=== PATIENT | female | born 1955 | race Caucasian/White ===

== ENCOUNTER 2017-02-20 09:01 | Emergency (ER) | payer BC ==
[2017-02-20 09:12] VITALS: TEMP 98.7
--- NOTE | 2017-02-20 09:23 | ED.PDOC ---
History of Present Illness - General Chief Complaint: Chest Pain/[place] Stated Complaint: chest discomfort Time Seen by Provider: 02/20/17 09:09 Source: patient, RN notes reviewed, Vital Signs reviewed Exam Limitations: no limitations - History of Present Illness Initial Comments: Patient reports sudden onset of L sided chest pain ~1 hour prior to arrival. Pain went down L arm. +SOB & diaphoresis. No similar episodes in the past. Pain is centered around her pacemaker in her L upper chest, tender to the touch. Timing/Duration: 1 hour Severity/Quality: moderate, pressure Location: other - L chest Chest Pain Radiation: arms - L arm Activities at Onset: activity - was taking a shower Prior Chest Pain/Cardiac Workup: no prior chest pain, other - Has pacemaker due to a. fib Improving Factors: nothing Worsening Factors: nothing Nitro Today/Relief: no nitro taken today Aspirin Treatment Today: no aspirin today Associated Symptoms: diaphoresis, shortness of breath Allergies/Adverse Reactions: Allergies NO KNOWN ALLERGY Allergy (Verified 06/26/16 14:29) Home Medications: Ambulatory Orders Atorvastatin Calcium [Lipitor] 20 mg PO DAILY 06/26/16 Levothyroxine Sodium [Synthroid] 100 mcg PO DAILY 06/26/16 Lisinopril & Hydrochlorothiazi [Lisinopril/Hctz 20-25 mg] 1 tab PO DAILY Venlafaxine HCl 75 mg PO BID 06/26/16 Review of Systems - Review of Systems Constitutional: States: no symptoms reported EENTM: States: no symptoms reported Respiratory: States: short of breath. Denies: cough, stridor, wheezing Cardiology: States: see HPI, chest pain. Denies: edema, palpitations, syncope Gastrointestinal/Abdominal: States: no symptoms reported Genitourinary: States: no symptoms reported Musculoskeletal: States: see HPI Skin: States: no symptoms reported Neurological: States: no symptoms reported Endocrine: States: no symptoms reported Hematologic/Lymphatic: States: no symptoms reported Past Medical History (General) - Patient Medical History Hx Stroke: No Hx Cardiac Disorders: Yes - Hx bradycardia / s/p pacemaker placement; hypercholesterolemia Hx Congestive Heart Failure: Yes Hx Hypertension: Yes Hx Thyroid Disease: Yes - thyroidectomy Hx Diabetes: No - diet controlled, per patient Hx MRSA: No Surgical History: pacemaker, Hysterectomy - Vaccination History Hx Influenza Vaccination: Yes - 2015 Hx Pneumococcal Vaccination: Yes - 05/2016 - Social History Hx Tobacco Use: Yes - social smoker - Female History Patient is a Female of Child Bearing Age (10 -59 yrs old): No Family Medical History - Family History Mother Living Status: Still Living Hx Family Hypertension: Yes Hx Cardiac Disease: Yes - [place] Hx Family Diabetes: Yes - IDDM Physical Exam - Physical Exam General Appearance: Alert, Comfortable, No apparent distress, Well Developed, Well Groomed, Well Hydrated, Well Nourished Neck: non-tender, full range of motion, supple, normal inspection Respiratory: lungs clear, normal breath sounds, no respiratory distress, no accessory muscle use, other - L upper chest is tender to palpation over and around pacemaker Cardiovascular/Chest: normal peripheral pulses, regular rate, rhythm, no edema, no gallop, no JVD, no murmur Peripheral Pulses: dorsalis pedis,right: 2+, dorsalis pedis,left: 2+ Gastrointestinal/Abdominal: normal bowel sounds, non tender, soft, no organomegaly, no pulsatile mass Extremity: normal range of motion, non-tender, normal inspection Neurologic: no motor/sensory deficits, alert, normal mood/affect, oriented x 3 Skin Exam: normal color, warm/dry Lymphatic: no adenopathy Progress - Progress Progress: 02/20/17 09:59 Except for elevated CPK initial workup is normal. Will plan to repeat cardiac enzymes and EKG in 3 hours. 02/20/17 13:36 Second set of cardiac enzymes are normal. Will d/c home and have her follow up with her application administrator. - Results/Orders Results/Orders: Laboratory Tests 02/20/17 02/20/17 09:25 12:50 WBC 5.8 RBC 4.54 Hgb 14.0 Hct 40.6 MCV 89.3 MCH 30.8 MCHC 34.5 RDW 13.4 Plt Count 273 MPV 8.3 Absolute Neuts (auto) 3.00 Absolute Lymphs (auto) 1.90 Absolute Monos (auto) 0.50 Absolute Eos (auto) 0.30 Absolute Basos (auto) 0.10 Neutrophils % 52.1 Lymphocytes % 33.3 Monocytes % 8.7 Eosinophils % 4.7 Basophils % 1.2 PT 10.8 INR 0.960 PTT (SP) 30.8 D-Dimer, Quantitative < 200 Sodium 136 Potassium 3.5 L Chloride 99 L Carbon Dioxide 28 Anion Gap 12.5 BUN 10 Creatinine 0.82 BUN/Creatinine Ratio 12.2 Random Glucose 127 H Serum Osmolality 272.6 L Calcium 9.3 Magnesium 1.8 Total Bilirubin 0.5 Direct Bilirubin 0.1 Indirect Bilirubin 0.4 AST 29 ALT 34 Alkaline Phosphatase 53 Creatine Kinase 192 H 198 H CK-MB (CK-2) 2.2 2.1 CK-MB (CK-2) % Not Reportable Not Reportable Troponin I < 0.02 < 0.02 B-Natriuretic Peptide 6.2 Serum Total Protein 7.4 Albumin 4.7 Vital Signs - 24 hr 02/20/17 02/20/17 02/20/17 09:06 10:01 11:01 Temperature 98.7 F Pulse Rate [ 80 72 62 Apical] Respiratory 20 18 20 Rate Blood Pressure 137/97 138/92 139/96 [Right Arm] O2 Sat by Pulse 97 97 96 Oximetry - EKG/XRAY/CT EKG: no ST T wave changes Comments: Atrial paced rhythm, rate 79bpm Departure - Departure Clinical Impression: Chest pain Time of Disposition: 13:37 Disposition: Discharge to Home or Self Care Condition: Good Departure Forms: ED Discharge - Pt. Copy, Patient Portal Self Enrollment Instructions: DI for Atypical Chest Pain Diet: resume usual diet Activity: increase activity as tolerated Referrals: Alex England MD [Primary Care Provider] - 1-2 Weeks ARTIE PERAZA [Referring] - 1-2 Days Home Medications: Ambulatory Orders Atorvastatin Calcium [Lipitor] 20 mg PO DAILY 06/26/16 Levothyroxine Sodium [Synthroid] 100 mcg PO DAILY 06/26/16 Lisinopril & Hydrochlorothiazi [Lisinopril/Hctz 20-25 mg] 1 tab PO DAILY Venlafaxine HCl 75 mg PO BID 06/26/16
[2017-02-20] MEDS ORDERED: NITROGLYCERIN 0.4 MG 25 EA TAB SL ONE (09:25)
[2017-02-20] MEDS ORDERED: ASPIRIN (CHEWABLE) 81 MG TAB PO ONE (09:25)
--- NOTE | 2017-02-20 09:45 | RAD ---
EXAM DESCRIPTION: Chest,1 View CLINICAL HISTORY: Chest wall pain COMPARISON: 06/26/2016 TECHNIQUE: Single view FINDINGS: Cardiac pacemaker. Normal heart size. Tortuous aorta. The lungs are clear No acute bony abnormality IMPRESSION: No acute chest process. Electronically signed by: Nick Pinto MD 02/20/2017 9:44 AM CDT
[2017-02-20 13:55] VITALS: BP 136/84; O2SAT 96
== END 2017-02-20 13:50 | disposition home or self-care (01) ==
LOC: ER 09:01
DX: R07.9 Chest pain, unspecified (principal); Z95.0 Presence of cardiac pacemaker; I11.0 Hypertensive heart disease with heart failure; I50.9 Heart failure, unspecified; E11.9 Type 2 diabetes mellitus without complications; E78.00 Pure hypercholesterolemia, unspecified; Z87.891 Personal history of nicotine dependence; Z82.49 Family history of ischemic heart disease and other diseases of the circulatory system

== ENCOUNTER → 2017-03-18 | Outpatient (CLI) | payer BC ==
--- NOTE | 2017-03-19 11:30 | US ---
EXAM DESCRIPTION: Limited ultrasound of the left upper chest CLINICAL HISTORY: 61 years Female, CELLULITIS COMPARISON: None. TECHNIQUE: Real-time ultrasound of the left upper chest around the pacemaker site FINDINGS: There is subcutaneous edema and a small amount of fluid superior to the pacemaker and partially surrounding it. Physical exam shows induration/cellulitis in the region of interest. IMPRESSION: Infected pacemaker site. Findings discussed yesterday with Dr. England and with the patient. Electronically signed by: Damien Kemp MD 03/19/2017 11:29 AM CDT
== END | disposition home or self-care (01) ==
LOC: US 13:15
PROVIDERS: ATTEND Family Medicine
DX: L03.313 Cellulitis of chest wall (principal)

== ENCOUNTER → 2017-03-18 | Outpatient (CLI) | payer BC | END | disposition home or self-care (01) | LOC: GMAB 14:09 | PROVIDERS: ATTEND Family Medicine | DX: L03.313 Cellulitis of chest wall (principal) ==

== ENCOUNTER → 2017-03-27 | Outpatient (CLI) | payer BC ==
--- NOTE | 2017-03-28 09:07 | US ---
EXAM DESCRIPTION: Chest CLINICAL HISTORY: 61 years Female, CELLULITIS OF CHEST WALL COMPARISON: None. FINDINGS: Sonographic evaluation of the left upper anterior chest wall in the area of the recent pacer placement demonstrates a pacer in place with a tiny layer of fluid between one and 2 mm in thickness surrounding the pacer but no drainable abscess or large hematoma or fluid collection. By history the patient has undergone antibiotic treatment and a drainable area of infection is not identified. IMPRESSION: Very tiny thin 1 to 2 mm layer of fluid surrounding the indwelling pacer in the left anterior upper chest wall without evidence of abscess or hematoma. Electronically signed by: Nick Turner MD 03/28/2017 9:06 AM CDT
== END | disposition home or self-care (01) ==
LOC: US 10:35
PROVIDERS: ATTEND Family Medicine
DX: L03.313 Cellulitis of chest wall (principal); Z95.0 Presence of cardiac pacemaker

== ENCOUNTER → 2017-03-28 | Outpatient (CLI) | payer BC | END | disposition home or self-care (01) | LOC: GMAB 11:17 | PROVIDERS: ATTEND Family Medicine | DX: L03.313 Cellulitis of chest wall (principal); Z95.0 Presence of cardiac pacemaker ==

== ENCOUNTER → 2017-07-08 | Outpatient (CLI) | payer BC | END | disposition home or self-care (01) | LOC: GMAB 14:13 | PROVIDERS: ATTEND Family Medicine | DX: E03.9 Hypothyroidism, unspecified (principal) ==

== ENCOUNTER 2017-11-16 11:39 | Emergency (ER) | payer SELFPAY ==
--- NOTE | 2017-11-16 11:47 | ED.PDOC ---
History of Present Illness - General Chief Complaint: Chest Pain/[place] Stated Complaint: chest pain Time Seen by Provider: 11/16/17 11:44 Source: patient, RN notes reviewed, family Exam Limitations: no limitations Additional Information: Pt states this am she was about to brush her teeth when she had sudden right upper back pain (inferior to scapula). Pain is tender to palpation and worse with movements and deep breaths. 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 Mostly c/o right upper back pain which is tender to palpation Allergies/Adverse Reactions: Allergies Levothyroxine Allergy (Verified 11/16/17 11:54) Home Medications: Ambulatory Orders Lisinopril & Hydrochlorothiazi [Lisinopril/Hctz 20-25 mg] 1 tab PO DAILY Venlafaxine HCl 75 mg PO DAILY 06/26/16 Esomeprazole Magnesium [Nexium] 40 mg PO DAILY 11/16/17 Levothyroxine Sodium [Synthroid] 100 mcg PO DAILY 11/16/17 Review of Systems - Review of Systems Constitutional: States: no symptoms reported EENTM: States: no symptoms reported Respiratory: States: other - Back pain worsens with deep breath Cardiology: States: see HPI Gastrointestinal/Abdominal: States: no symptoms reported Genitourinary: States: no symptoms reported Musculoskeletal: States: see HPI, back pain Skin: States: no symptoms reported Neurological: States: no symptoms reported Endocrine: States: no symptoms reported Hematologic/Lymphatic: States: no symptoms reported Past Medical History (General) - Patient Medical History Hx Stroke: No Hx Cardiac Disorders: Yes - Hx bradycardia / s/p pacemaker placement; hypercholesterolemia Hx Congestive Heart Failure: Yes Hx Hypertension: Yes Hx Thyroid Disease: Yes - thyroidectomy Hx Diabetes: No - diet controlled, per patient Hx MRSA: No - Vaccination History Hx Influenza Vaccination: Yes - 2015 Hx Pneumococcal Vaccination: Yes - 05/2016 - Social History Hx Tobacco Use: Yes - social smoker Family Medical History - Family History Mother Living Status: Still Living Hx Family Hypertension: Yes Hx Cardiac Disease: Yes - [place] Hx Family Diabetes: Yes - IDDM Physical Exam - Physical Exam General Appearance: Anxious, Well Developed, Well Groomed, Well Hydrated, Well Nourished Eyes, Ears, Nose, Throat Exam: PERRL/EOMI, normal ENT inspection, pharynx normal Neck: non-tender, full range of motion, supple, normal inspection Respiratory: no respiratory distress, no accessory muscle use Cardiovascular/Chest: normal peripheral pulses, regular rate, rhythm Gastrointestinal/Abdominal: non tender, soft Extremity: normal range of motion 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 Progress - Progress Progress: 11/16/17 13:25 Doubt PE. Not hypoxic. No tachycardia. Negative d-dimer. Work-up for ACS negative. Exam consistent with muscle spasm/myofascial pain. Serial EKG with NSR. Telemetry shows sinus rhythm with variable HR 50s to 80s. Plan is for Holter Monitor for 48 hours and strict return precautions. - Results/Orders Results/Orders: Laboratory Results - last 24 hr 11/16/17 11/16/17 11/16/17 11:58 11:58 11:58 WBC 7.0 RBC 4.70 Hgb 14.2 Hct 41.1 MCV 87.4 MCH 30.2 MCHC 34.6 RDW 13.6 Plt Count 259 MPV 8.3 Absolute Neuts (auto) 3.50 Absolute Lymphs (auto) 2.40 Absolute Monos (auto) 0.70 Absolute Eos (auto) 0.30 Absolute Basos (auto) 0.10 Neutrophils % 50.2 Lymphocytes % 34.6 Monocytes % 9.8 H Eosinophils % 3.9 Basophils % 1.5 D-Dimer, Quantitative < 230 Sodium 139 Potassium 3.9 Chloride 103 Carbon Dioxide 27 Anion Gap 12.9 BUN 18 Creatinine 0.79 BUN/Creatinine Ratio 22.8 H Random Glucose 80 Serum Osmolality 278.4 Calcium 9.9 Total Bilirubin 0.4 AST 27 ALT 32 Alkaline Phosphatase 57 Creatine Kinase 244 H* CK-MB (CK-2) 3.3 CK-MB (CK-2) % Not Reportable Troponin I < 0.02 B-Natriuretic Peptide 27.7 Serum Total Protein 7.9 Albumin 4.9 Globulin 3.0 Albumin/Globulin Ratio 1.6 11/16/17 11/16/17 11:48 12:03 Temperature 97.7 F Pulse Rate [ 51 L 82 Right Brachial] Respiratory 16 Rate Blood Pressure 158/112 [Right Arm] O2 Sat by Pulse 98 Oximetry - EKG/XRAY/CT EKG: Sinus - NSR 78 bpm no S-T elevation at 1137 XRAY: chest - No acute abnormalities - Additional EKG/XRAY/Consults EKG #2: Sinus - 66 bpm, NSR, no S-T elevation Departure - Departure Clinical Impression: History of cardiac arrhythmia Upper back strain Qualifiers: Encounter type: initial encounter Qualified Code(s): S29.012A - Strain of muscle and tendon of back wall of thorax, initial encounter Time of Disposition: 13:25 Disposition: Discharge to Home or Self Care Condition: Good Departure Forms: ED Discharge - Pt. Copy, Patient Portal Self Enrollment Referrals: Alex England MD [Primary Care Provider] - 1-5 Days Home Medications: Ambulatory Orders Lisinopril & Hydrochlorothiazi [Lisinopril/Hctz 20-25 mg] 1 tab PO DAILY Venlafaxine HCl 75 mg PO DAILY 06/26/16 Esomeprazole Magnesium [Nexium] 40 mg PO DAILY 11/16/17 Levothyroxine Sodium [Synthroid] 100 mcg PO DAILY 11/16/17 Additional Instructions: Return to ER if condition worsens. Follow-up with Dr. England for Holter Monitor results and make sure Dr. Roberto in [facility] gets the report as well. Stay well hydrated. Heat and massage for upper back symptoms. Ok to take ibuprofen/advil 400 mg three times a day as well as needed for pain.
[2017-11-16 11:54] VITALS: O2SAT 98
--- NOTE | 2017-11-16 12:24 | RAD ---
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 No pleural effusion or pneumothorax. Cardiac silhouette is normal in size. Impression: No acute pulmonary process. Electronically signed by: Emelyn Pozo MD 11/16/2017 12:22 PM INFORMATION SERVICES VICE PRESIDENT
[2017-11-16 13:30] VITALS: BP 133/91; TEMP 97
== END 2017-11-16 13:25 | disposition home or self-care (01) ==
LOC: ER 11:39
DX: S29.012A Strain of muscle and tendon of back wall of thorax, initial encounter (principal); F17.200 Nicotine dependence, unspecified, uncomplicated; I11.0 Hypertensive heart disease with heart failure; I50.9 Heart failure, unspecified; Z86.79 Personal history of other diseases of the circulatory system; Z95.0 Presence of cardiac pacemaker; Z86.711 Personal history of pulmonary embolism

== ENCOUNTER 2019-01-03 13:44 | Emergency (ER) | payer SELFPAY ==
[2019-01-03] MEDS ORDERED: ENALAPRILAT INJ 1.25 MG/ML VIAL IV ONE (14:15)
--- NOTE | 2019-01-03 14:20 | ED.PDOC ---
History of Present Illness - General Chief Complaint: Cardiovascular Problem Stated Complaint: Uncontrolled HTN, cough Time Seen by Provider: 01/03/19 14:14 Source: patient Exam Limitations: no limitations - History of Present Illness Initial Comments: patient comes in today with elevation of blood pressure over the past 24 hours. Patient states she's had a difficult time with intermittent elevations of blood pressure in the past week. She called her normal doctor who had her increase her lisinopril but thus far has not made a differnece. Last night her blood pressure systolic was running in the 190s. She went to the clinic this morning but because she had noted that for the past day she's had intermittent bouts of left shoulder pain and left back pain they wanted her to be checked out in the emergency room to make sure it wasn't cardiac in nature. Patient has had a past AR that was diagnosed subsequently on EKG without symptoms. Patient also has a complicated cardiac history with bradycardia that resulted in a pacemaker being placed. However, the pacemaker lead got displaced and due to her heart being rotated more than average they could not replace the pacemaker with the standard leads. Additionally, the last pacemaker that was placed got infected and she had pericarditis and it had to be removed. Patient states at this time her heart rate normally runs in the 40s sometimes the 30s but her blood pressure usually remains elevated not low. She denies any chest pain, diaphoresis, nausea or vomiting. She has no current back pain yesterday when her blood pressure was up she states she was hurting in the back by the left scapula. Additionally, the intermittent pain on her shoulder happens throughout the day comes and goes and is not there currently. She states she's had no injury to the shoulder and increased activity and no trauma. Movement does not make the pain worse and just seems to go away on its own. Timing/Duration: 24 hours Severity: moderate Location: shoulder Activities at Onset: none Prior Chest Pain/Cardiac Workup: heart attack Improving Factors: nothing Worsening Factors: nothing Nitro Today/Relief: no nitro taken today Aspirin Treatment Today: no aspirin today Associated Symptoms: denies symptoms Allergies/Adverse Reactions: Allergies Levothyroxine Allergy (Verified 11/16/17 11:54) Home Medications: Ambulatory Orders Lisinopril & Hydrochlorothiazi [Lisinopril/Hctz 20-25 mg] 1 tab PO DAILY 06/26/16 Venlafaxine HCl 75 mg PO DAILY 06/26/16 Esomeprazole Magnesium [Nexium] 40 mg PO DAILY 11/16/17 Levothyroxine Sodium [Synthroid] 100 mcg PO DAILY 11/16/17 Amlodipine Besylate [Norvasc] 2.5 mg PO DAILY #30 tab 01/03/19 Review of Systems - Review of Systems Constitutional: States: no symptoms reported. Denies: chills, fever EENTM: States: no symptoms reported. Denies: eye pain, blurred vision Respiratory: States: no symptoms reported. Denies: cough, short of breath, wheezing Cardiology: States: see HPI Gastrointestinal/Abdominal: States: no symptoms reported. Denies: abdominal pain, diarrhea, nausea, vomiting Musculoskeletal: States: see HPI Past Medical History (General) - Patient Medical History Hx Stroke: No Hx Cardiac Disorders: Yes - Hx bradycardia / s/p pacemaker placement; hypercholesterolemia Hx Congestive Heart Failure: Yes Hx Hypertension: Yes Hx Thyroid Disease: Yes - thyroidectomy Hx Diabetes: No - diet controlled, per patient Hx MRSA: No - Vaccination History Hx Influenza Vaccination: Yes - 2015 Hx Pneumococcal Vaccination: Yes - 05/2016 - Social History Hx Tobacco Use: Yes - social smoker Family Medical History - Family History Mother Living Status: Still Living Hx Family Hypertension: Yes Hx Cardiac Disease: Yes - [place] Hx Family Diabetes: Yes - IDDM Physical Exam - Physical Exam General Appearance: Alert, Comfortable, No apparent distress Eyes, Ears, Nose, Throat Exam: PERRL/EOMI, normal ENT inspection, TMs normal, pharynx normal Neck: non-tender, full range of motion, supple, normal inspection, carotid bruit Respiratory: chest non-tender, lungs clear, normal breath sounds, no respiratory distress, no accessory muscle use Cardiovascular/Chest: normal peripheral pulses, regular rate, rhythm, no edema, no gallop, no murmur Peripheral Pulses: radial,right: 2+, radial,left: 2+ Gastrointestinal/Abdominal: normal bowel sounds, non tender, soft, no organomegaly Neurologic: no motor/sensory deficits, alert, oriented x 3 Progress - Progress Progress: 01/03/19 15:16 patient feels well and is asymptomatic. will add norvasc 2.5 mg po qd and have her follow up with PCP on Saturday - Results/Orders Results/Orders: 01/03/19 14:15 EKG Assessment ONCE EKG STAT Laboratory Results WBC 6.2 K/mm3 (4.8-10.8) 01/03/19 14:22 RBC 4.81 M/mm3 (4.20-5.40) 01/03/19 14:22 Hgb 14.7 gm/dL (12.0-16.0) 01/03/19 14:22 Hct 42.8 % (36.0-47.0) 01/03/19 14:22 MCV 88.9 fl (81.0-99.0) 01/03/19 14:22 MCH 30.6 pg (27.0-31.0) 01/03/19 14:22 MCHC 34.4 g/dL (33.0-37.0) 01/03/19 14:22 RDW 13.7 % (11.5-14.5) 01/03/19 14:22 Plt Count 223 K/mm3 (130-400) 01/03/19 14:22 MPV 9.0 fl (7.40-10.4) 01/03/19 14:22 Absolute Neuts (auto) 3.80 K/uL (1.8-6.8) 01/03/19 14:22 Absolute Lymphs (auto) 1.60 K/uL (1.0-3.4) 01/03/19 14:22 Absolute Monos (auto) 0.60 K/uL (0.2-0.8) 01/03/19 14:22 Absolute Eos (auto) 0.20 K/uL (0.0-0.4) 01/03/19 14:22 Absolute Basos (auto) 0.10 K/uL (0.0-0.1) 01/03/19 14:22 Neutrophils % 61.0 % (42.0-78.0) 01/03/19 14:22 Lymphocytes % 25.6 % (20.0-50.0) 01/03/19 14:22 Monocytes % 8.9 % (2.0-9.0) 01/03/19 14:22 Eosinophils % 3.6 % (1.0-5.0) 01/03/19 14:22 Basophils % 0.9 % (0.0-2.0) 01/03/19 14:22 Sodium 139 mmol/L (135-145) 01/03/19 14:22 Potassium 3.6 mmol/L (3.6-5.0) 01/03/19 14:22 Chloride 102 mmol/L (101-111) 01/03/19 14:22 Carbon Dioxide 27 mmol/L (21-31) 01/03/19 14:22 Anion Gap 13.6 (12-18) 01/03/19 14:22 BUN 15 mg/dL (7-18) 01/03/19 14:22 Creatinine 0.60 mg/dL (0.6-1.3) 01/03/19 14:22 BUN/Creatinine Ratio 25.0 (10-20) H 01/03/19 14:22 Random Glucose 107 mg/dL (70-105) H 01/03/19 14:22 Serum Osmolality 278.8 mOsm/L (275-295) 01/03/19 14:22 Calcium 9.7 mg/dL (8.4-10.2) 01/03/19 14:22 Magnesium 1.8 mg/dL (1.8-2.5) 01/03/19 14:22 Total Bilirubin 0.8 mg/dL (0.2-1.0) 01/03/19 14:22 AST 28 IU/L (10-42) 01/03/19 14:22 ALT 27 IU/L (10-60) 01/03/19 14:22 Alkaline Phosphatase 50 IU/L (42-121) 01/03/19 14:22 Creatine Kinase 121 IU/L (26-140) 01/03/19 14:22 CK-MB (CK-2) 2.5 ng/mL (0.0-4.4) 01/03/19 14:22 CK-MB (CK-2) % Not Reportable 01/03/19 14:22 Troponin I < 0.02 ng/mL (0.01-0.05) 01/03/19 14:22 Serum Total Protein 7.5 gm/dL (6.4-8.2) 01/03/19 14:22 Albumin 4.8 g/dl (3.2-5.5) 01/03/19 14:22 Globulin 2.7 gm/dL (2.3-3.5) 01/03/19 14:22 Albumin/Globulin Ratio 1.8 (1.1-1.9) 01/03/19 14:22 - EKG/XRAY/CT EKG: [place], Sinus, no ST T wave changes Comments: HR 47 normal axis Departure - Departure Clinical Impression: Hypertensive urgency Disposition: Discharge to Home or Self Care Condition: Good Departure Forms: ED Discharge - Pt. Copy, Patient Portal Self Enrollment Instructions: DI for Chest Pain Referrals: Alex England MD [Primary Care Provider] - 1-2 Weeks Prescriptions: Amlodipine Besylate [Norvasc] 2.5 mg PO DAILY #30 tab Home Medications: Ambulatory Orders Lisinopril & Hydrochlorothiazi [Lisinopril/Hctz 20-25 mg] 1 tab PO DAILY 06/26/16 Venlafaxine HCl 75 mg PO DAILY 06/26/16 Esomeprazole Magnesium [Nexium] 40 mg PO DAILY 11/16/17 Levothyroxine Sodium [Synthroid] 100 mcg PO DAILY 11/16/17 Amlodipine Besylate [Norvasc] 2.5 mg PO DAILY #30 tab 01/03/19 Additional Instructions: return to ER for chest pain, shortness of breath. follow up with PCP on Saturday to recheck blood pressure
--- NOTE | 2019-01-03 14:27 | RAD ---
EXAM: Chest,1 View CLINICAL INDICATION: Chest pain COMPARISON: 11/16/2017 FINDINGS: A single view of the chest was obtained. The heart size is normal. The pulmonary vascularity is unremarkable. The lungs are clear. There is no consolidation, infiltrate, pleural effusion, or pneumothorax. IMPRESSION: No evidence of active pulmonary disease. Electronically signed by: Jonatan Lang MD 01/03/2019 2:25 PM SPECIFICATION WRITER
[2019-01-03 15:35] VITALS: BP 147/92; TEMP 97.4; O2SAT 98
== END 2019-01-03 15:36 | disposition home or self-care (01) ==
LOC: ER 13:44
DX: I16.0 Hypertensive urgency (principal); R05 Cough; R00.1 Bradycardia, unspecified; I50.9 Heart failure, unspecified; I11.0 Hypertensive heart disease with heart failure; E78.00 Pure hypercholesterolemia, unspecified; E89.0 Postprocedural hypothyroidism; Z95.0 Presence of cardiac pacemaker; Z79.899 Other long term (current) drug therapy; Z72.0 Tobacco use